=== PATIENT | male | born 1940 | race Caucasian/White ===

== ENCOUNTER 2022-04-02 14:58 | Emergency (ER) | payer MEDICARE, OTHER ==
[2022-04-02 15:38] VITALS: BP 137/70; PULSE 73
== END 2022-04-02 16:00 | disposition home or self-care (01) ==
LOC: FB.ED 14:58
DX: U07.1 COVID-19 (principal); I50.40 Unspecified combined systolic (congestive) and diastolic (congestive) heart failure; Z88.5 Allergy status to narcotic agent; Z79.899 Other long term (current) drug therapy; Z98.61 Coronary angioplasty status
CPT/HCPCS: 99283

== ENCOUNTER 2023-05-28 15:57 | Emergency (ER) | payer MEDICARE, OTHER ==
[2023-05-28 17:02] LABS: BASOPHILS PERCENT AUTO 0.2 % (0.3-3.8); EOSINOPHILS PERCENT AUTO 0.2 % (0.1-6.8); HEMATOCRIT 35.2 % (38.3-50.1); HEMOGLOBIN 11.6 g/dL (12.9-17.7); LYMPHOCYTES ABSOLUTE AUTO 0.8 x10-3/uL (0.5-4.5); LYMPHOCYTES PERCENT AUTO 12.2 % (15.8-45.3); MEAN CORPUSCULAR HEMOGLOBIN 26.1 pg (27.0-33.3); MEAN CORPUSCULAR HGB CONC 33.1 g/dL (28.7-35.3); MEAN PLATELET VOLUME 8.3 fL (6.7-11.0); MONOCYTES ABSOLUTE AUTO 0.9 x10-3/uL (0.0-1.2); MONOCYTES PERCENT AUTO 13.7 % (5.5-15.2); NEUTROPHILS ABSOLUTE AUTO 4.7 x10-3/uL (1.7-6.9); NEUTROPHILS PERCENT AUTO 73.7 % (40.3-71.8); PLATELET COUNT,PLT 107 x10(3)uL (117-477); RED BLOOD CELL COUNT 4.46 x10(6)uL (3.90-5.90); RED CELL DISTRIBUTION WIDTH 16.1 % (12.4-15.0); WHITE BLOOD CELL COUNT,WBC 6.4 x10-3/uL (3.2-10.1)
[2023-05-28 17:06] LABS: BLOOD UREA NITROGEN,BUN 17 mg/dL (7-18); BUN/CREATININE RATIO 12.1 (9-20); CALCIUM 9.1 mg/dL (8.6-10.2); CARBON DIOXIDE,CO2 28 mmol/L (21-32); CHLORIDE,CL 101 mmol/L (100-110); CREATININE 1.4 mg/dL (0.70-1.30); EST CRCL DRUG DOSING (CG) 42.73 mL/min; ESTIMATED GFR 50 mL/min (>60); GLUCOSE RANDOM 129 mg/dL (80-116); POTASSIUM,K 3.4 mmol/L (3.5-5.3); SODIUM,NA 140 mmol/L (135-145)
[2023-05-28 17:12] LABS: A/G RATIO 0.7; ALANINE AMINOTRANSFERASE,ALT 17 U/L (12-36); ALBUMIN 3.4 g/dL (3.2-4.6); ALKALINE PHOSPHATASE 100 IU/L (56-112); ASPARTATE AMNIOTRANSFERASE,AST 11 IU/L (5-25); BILIRUBIN TOTAL 0.3 mg/dL (0.1-1.3); PROTEIN TOTAL,TP 8.4 g/dL (6.0-8.0)
== END 2023-05-28 17:45 | disposition home or self-care (01) ==
LOC: FB.ED 15:57
DX: U07.1 COVID-19 (principal); E78.00 Pure hypercholesterolemia, unspecified; I10 Essential (primary) hypertension; Z88.5 Allergy status to narcotic agent; Z79.899 Other long term (current) drug therapy
CPT/HCPCS: 36415; 71045; 80053; 85025; 99283